=== PATIENT | female | born 1960 | race Caucasian/White ===

== ENCOUNTER → 2017-10-18 | Outpatient (CLI) | payer BC ==
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
== END | disposition home or self-care (01) ==
LOC: RADXRMAIN 11:00
PROVIDERS: ATTEND Nurse Practitioner Women's Health
DX: M47.812 Spondylosis without myelopathy or radiculopathy, cervical region (principal)
CPT/HCPCS: 72050

== ENCOUNTER → 2019-10-10 | Outpatient (CLI) | payer BC ==
--- NOTE | 2019-10-10 15:22 | US ---
EXAMINATION TYPE: US thyroid st tissue head/neck DATE OF EXAM: 10/10/2019 COMPARISON: NONE CLINICAL HISTORY: R22.0 Localized swelling, mass and lump, head. Sleepiness GLAND SIZE: Right Lobe: 4.1 x 1.8 x 1.3 cm Overall Parenchyma: heterogenous Left Lobe: 2.7 x 0.9 x 0.8 cm Overall Parenchyma: heterogeneous Isthmus Thickness: 0.3 cm NODULES RIGHT: # of nodules measured on right: 0 LEFT: # of nodules measured on left: 0 ISTHMUS: # of nodules measured in the isthmus: 0 Bilateral neck scanned, no evidence of lymphadenopathy. IMPRESSION: Bilateral heterogeneous and hypervascular thyroid lobes.
== END | disposition home or self-care (01) ==
LOC: RADUSWWP 14:52
PROVIDERS: ATTEND Family Medicine
DX: R22.0 Localized swelling, mass and lump, head (principal); Z88.0 Allergy status to penicillin
CPT/HCPCS: 76536

== ENCOUNTER → 2021-05-06 | Outpatient (CLI) | payer BC ==
--- NOTE | 2021-05-06 10:11 | NM ---
EXAMINATION TYPE: NM hepatobiliary w EF DATE OF EXAM: 05/06/2021 COMPARISON: NONE HISTORY: Epigastric and abdominal pain with diminished appetite and nausea. TECHNIQUE: After the intravenous administration of 5 mCi Tc 99m Mebrofenin hepatobiliary scintigraphy is performed. Immediate images post injection. FINDINGS: There is satisfactory initial accumulation of tracer by the liver. The gallbladder is visualized wit hin 20 minutes. The small bowel activity is not even well visualized even after 60 minutes. At one hour 8 ounces of oral ensure plus is given to mimic CCK and gallbladder ejection fraction is calculat ed at 80 %, not deviated from the normal range. Therefore there is no scintigraphic evidence of cyst ic or common bile duct obstruction to suggest acute cholecystitis or gallbladder dyskinesia. IMPRESSION: As above.
== END | disposition home or self-care (01) ==
LOC: RADNMMAIN 06:51
PROVIDERS: ATTEND Nurse Practitioner Family
DX: R10.13 Epigastric pain (principal); R63.0 Anorexia; R11.0 Nausea
CPT/HCPCS: 78226; A9537

== ENCOUNTER → 2022-02-10 | Outpatient (CLI) | payer BC ==
--- NOTE | 2022-02-10 16:35 | US ---
EXAMINATION TYPE: US abdomen complete DATE OF EXAM: 02/10/2022 COMPARISON: NONE CLINICAL HISTORY: 61-year-old female R10.13 EPIGASTRIC PAIN. EXAM MEASUREMENTS: Liver Length: 11.6 cm Gallbladder Wall: .2 cm CBD: .5 cm Spleen: 7.3 cm Right Kidney: 9.5 x 4.0 x 4.0 cm Left Kidney: 9.2 x 4.8 x 4.4 cm Pancreas: wnl Liver: wnl Gallbladder: Tiny 3 mm adherent calculus to the posterior wall versus a small gallbladder wall polyp . No abnormal distention, wall thickening, or pericholecystic fluid. Evidence for sonographic Maguire's sign: No CBD: wnl Spleen: wnl Right Kidney: wnl Left Kidney: wnl Upper IVC: wnl Abd Aorta: wnl IMPRESSION: 1. Either a tiny 3 mm adherent gallstone or a gallbladder wall polyp. Consider 6 month follow-up gall bladder ultrasound to reassess. 2. Otherwise, unremarkable sonographic examination of the abdomen.
== END | disposition home or self-care (01) ==
LOC: RADUSWWP 09:25
PROVIDERS: ATTEND Family Medicine
DX: K80.20 Calculus of gallbladder without cholecystitis without obstruction (principal)
CPT/HCPCS: 76700

== ENCOUNTER → 2023-03-11 | Outpatient (CLI) | payer BC ==
--- NOTE | 2023-03-11 14:10 | US ---
EXAMINATION TYPE: US abdomen complete DATE OF EXAM: 03/11/2023 COMPARISON: EXAMINATION TYPE: US abdomen complete DATE OF EXAM: 03/11/2023 COMPARISON: NONE CLINICAL INDICATION: Female, 62 years old with history of R14.0 ABDOMINAL DISTENSION (GASEOUS) R19.0 0 lump; lump LUQ under rib cage. Attention spleen. TECHNIQUE: Multiple sonographic images of the left upper quadrant are obtained. FINDINGS: EXAM MEASUREMENTS: Spleen: 7.7 cm [employer] NOTES: Scanned LUQ area of lump. Bowel loop is visualized. 1. Spleen: wnl IMPRESSION: Targeted scanning along the left upper quadrant shows normal size spleen. No specific abnormality kirby ntified of the superficial soft tissues. The palpable palpable finding can be followed clinically. CT if any enlargement or suspicious features developed.
== END | disposition home or self-care (01) ==
LOC: RADUSWWP 08:29
PROVIDERS: ATTEND Family Medicine
DX: R14.0 Abdominal distension (gaseous) (principal)
CPT/HCPCS: 76705